=== PATIENT | female | born 1975 | race Caucasian/White ===

== ENCOUNTER → 2020-02-11 | Outpatient (CLI) | payer OTHER ==
[~2020-02-11] MED LIST: CETI10CA PO; FERROUS GLYCINATE PO; MAGN400T36 PO; immunotherapy INJ; vitamin d3 PO
[2020-02-11 16:27] LABS: BASOPHILS # (AUTO) 0.04 x10^3/uL (0-0.1); BASOPHILS % (AUTO) 1 % (0-1); EOSINOPHILS # (AUTO) 0.21 x10^3/uL (0-0.4); EOSINOPHILS % (AUTO) 3 % (1-7); LYMPHOCYTES # (AUTO) 2.32 x10^3/uL (1-3.4); LYMPHOCYTES % (AUTO) 35 % (22-44); MD NO; MEAN CORPUSCULAR HEMOGLOBIN 29.6 pg (27.0-34.8); MEAN CORPUSCULAR HGB CONC 33.9 g/dL (32.4-35.8); MEAN CORPUSCULAR VOLUME 87.4 fL (80-100); MEAN PLATELET VOLUME 8.7 fL (7.4-10.4); MONOCYTES % (AUTO) 6 % (2-9); NEUTROPHILS # (AUTO) 3.69 x10^3/uL (1.8-6.8); NEUTROPHILS % (AUTO) 56 % (42-75); PLATELET COUNT 277 x10^3/uL (130-400); RED BLOOD COUNT 4.86 x10^6/uL (3.82-5.3); RED CELL DISTRIBUTION WIDTH 15.5 % (9.6-15.2)
[2020-02-11 16:34] LABS: CHLORIDE 110 mmol/L (98-107)
[2020-02-11 16:57] LABS: ALANINE AMINOTRANSFERASE 24 U/L (12-78); ALBUMIN 3.9 g/dL (3.4-5.0); ALKALINE PHOSPHATASE 58 U/L (45-117); ANION GAP 7 mmol/L (5-15); BILIRUBIN,TOTAL 0.3 mg/dL (0.2-1.0); CALCIUM 9.1 mg/dL (8.5-10.1); CREATININE 0.93 mg/dL (0.55-1.02); TOTAL PROTEIN 7.4 g/dL (6.4-8.2)
[2020-02-11 17:01] LABS: MICROSCOPIC NOT IND
== END | disposition home or self-care (01) ==
LOC: STAR 15:21
PROVIDERS: ATTEND Obstetrics & Gynecology Gynecology
DX: Z01.818 Encounter for other preprocedural examination (principal); N92.0 Excessive and frequent menstruation with regular cycle
CPT/HCPCS: 36415; 80053; 81003; 84703; 85025

== ENCOUNTER 2020-02-21 10:40 | Day surgery (SDC) | payer BC, OTHER ==
[~2020-02-21] VITALS: Ht 167.6 cm; Wt 77.9 kg
[2020-02-21] MEDS ORDERED: LACTATED RINGERS 1,000 ML IV SCH (10:46)
[2020-02-21] MEDS ORDERED: CHLORHEXIDINE 15 ML UDC MM STA (10:46)
[2020-02-21] MEDS ORDERED: FENTANYL PF 250 MCG/5ML ONE (11:02)
[2020-02-21] MEDS ORDERED: MIDAZOLAM 1 MG/ML, 2ML ONE (11:02)
[2020-02-21 11:05] LABS: HCG UR SG 1.006 (1.003-1.030)
[2020-02-21] MEDS ORDERED: PROPOFOL 50 ML ONE (11:10)
[2020-02-21] MEDS ORDERED: DEXAMETHASONE 4 MG/ML, 1ML ONE ×2 (11:10)
[2020-02-21] MEDS ORDERED: ROCURONIUM 10MG/ML,5ML ONE (11:23)
[2020-02-21] MEDS ORDERED: KETOROLAC 30 MG/1 ML ONE (11:23)
[2020-02-21] MEDS ORDERED: PROPOFOL 10 MG/ML, 20ML ONE (11:23)
[2020-02-21] MEDS ORDERED: LABETALOL 5MG/ML, 20ML IV PRN (11:30)
[2020-02-21] MEDS ORDERED: ACETAMINOPHEN 325 MG TABLET PO PRN (11:30)
[2020-02-21] MEDS ORDERED: ONDANSETRON 2MG/ML, 2ML IVPush PRN (11:30)
[2020-02-21] MEDS ORDERED: MEPERIDINE/PF 25MG/0.5ML IVPush PRN (11:30)
[2020-02-21] MEDS ORDERED: OXYcodone 5 MG/5 ML ORAL.SOL UDC PO PRN (11:30)
[2020-02-21] MEDS ORDERED: PROMETHAZINE 25 MG/ML, 1ML IVPush PRN (11:30)
[2020-02-21] MEDS ORDERED: HYDROmorphone 1 MG/ML, 1ML INJ IVPush PRN (11:30)
[2020-02-21] MEDS ORDERED: FENTANYL PF 100 MCG/2ML IV PRN (11:30)
[2020-02-21] MEDS ORDERED: hydrALAzine 20 MG/ML, 1ML IV PRN (11:30)
[2020-02-21] MEDS ORDERED: LIDOCAINE 1%-EPI 1:100K, 20ML INFIL ONE (11:31)
[2020-02-21] MEDS ORDERED: ONDANSETRON 2MG/ML, 2ML ONE ×2 (11:39→12:21)
== END 2020-02-21 14:40 | disposition home or self-care (01) ==
LOC: OUT 10:40
PROVIDERS: ATTEND Obstetrics & Gynecology Gynecology
DX: N92.0 Excessive and frequent menstruation with regular cycle (principal); Z11.59 Encounter for screening for other viral diseases; Z88.1 Allergy status to other antibiotic agents; Z79.899 Other long term (current) drug therapy; Z72.89 Other problems related to lifestyle
CPT/HCPCS: 36415; 58353; 58670; 81025; 87635; 88302; J1100; J1885; J2250; J2405; J2704; J3010; J3490; J7120